=== PATIENT | male | born 1965 ===

== ENCOUNTER 2024-01-27 08:24 | Day surgery (SDC) | payer BC ==
[2024-01-27] MEDS: Lactated Ringers 1,000 ML IV SCH (09:30)
[2024-01-27] MEDS ORDERED: Lidocaine 2% 5 ML SDV ONE (09:47)
[2024-01-27] MEDS ORDERED: propofoL 500 MG/50 ML 50 ML ONE (09:47)
[2024-01-27] MEDS ORDERED: Propofol 200 MG/20 ML SDV ONE (10:22)
[2024-01-27] MEDS ORDERED: Lactated Ringers 1,000 ML IV SCH (10:45)
[2024-01-27 11:48] VITALS: BP 118/72; PULSE 50
== END 2024-01-27 11:30 | disposition home or self-care (01) ==
LOC: MW.SDS 08:24
PROVIDERS: ATTEND Surgery
DX: Z12.11 Encounter for screening for malignant neoplasm of colon (principal); D12.8 Benign neoplasm of rectum; K21.00 Gastro-esophageal reflux disease with esophagitis, without bleeding; K22.70 Barrett's esophagus without dysplasia; K57.30 Diverticulosis of large intestine without perforation or abscess without bleeding; E78.00 Pure hypercholesterolemia, unspecified; F41.8 Other specified anxiety disorders; Z79.899 Other long term (current) drug therapy
CPT/HCPCS: 43239; 45380; J2704; J7120; 00813; J3490